=== PATIENT | female | born 1945 | race American Indian/Alaskan Native ===

== ENCOUNTER 2022-02-18 09:33 | Emergency (ER) | payer OTHER ==
[2022-02-18 09:44] VITALS: TEMP 97.8; BMI 26.9
[2022-02-18] MEDS ORDERED: SODIUM CHLORIDE 1,000 ML IV ONE (10:31)
[2022-02-18] MEDS ORDERED: FAMOTIDINE 20 MG/50 ML IVPB 20 MG in PREMIX 50 IVPB ONE (10:31)
[2022-02-18] MEDS ORDERED: MAG HYDROX/AL HYDROX/SIMETH -MYLANTA- ORAL SUSPENSION PO ONE (10:31)
[2022-02-18] MEDS ORDERED: FAMOTIDINE 20 MG/50 ML IVPB 20 MG/50 ML MG IVPB ONE (11:00)
[2022-02-18] MEDS ORDERED: MAG HYDROX/AL HYDROX/SIMETH 30 ML UNIT-DOSE CUP ONE (11:00)
[2022-02-18 11:10] LABS: HEMOGLOBIN 12.3 GM/dL (10.7-15.3); MCHC 33.2 g/dl (32.0-36.0); MEAN CELL VOLUME 90.4 fl (80-96); MEAN PLT VOLUME 8.4 fl (7.5-11.1); PLATELET COUNT 187 10^3/uL (134-434); RDW 14.7 % (11.6-15.6); WHITE BLOOD COUNT 11.4 K/mm3 (4.0-10.0)
[2022-02-18 11:12] LABS: VENOUS BASE EXCESS -5.8 mmol/L (-2-2); VENOUS O2 SATURATION 77.2 % (70-80); VENOUS PCO2 39.5 mmHg (38-52); VENOUS PH 7.319 (7.310-7.410)
[2022-02-18 11:22] LABS: EPI CELLS 2 /uL (0-25.1); HYALINE CASTS 0 /uL (0-3.1); URINE APPEARANCE CLEAR; URINE BACTERIA 1 /uL (0-1359); URINE BILIRUBIN NEGATIVE (NEGATIVE); URINE COLOR YELLOW; URINE GLUCOSE (UA) NEGATIVE (NEGATIVE); URINE KETONE NEGATIVE (NEGATIVE); URINE LEUK ESTERASE TRACE (NEGATIVE); URINE NITRITE NEGATIVE (NEGATIVE); URINE PROTEIN NEGATIVE (NEGATIVE); URINE RBC 1 /uL (0-23.9); URINE UROBILINOGEN 0.2 mg/dL (0.2-1.0); URINE WBC 7 /uL (0-25.8)
[2022-02-18 11:23] LABS: INR 1.03 (0.83-1.09); PROTHROMBIN TIME (PATIENT) 11.9 SEC (9.7-13.0)
[2022-02-18 11:27] LABS: CHLORIDE 113 mmol/L (98-107); SODIUM 141 mmol/L (136-145)
[2022-02-18 11:30] LABS: CALCIUM 8.8 mg/dL (8.5-10.1)
[2022-02-18 11:31] LABS: ALBUMIN 3.3 g/dl (3.4-5.0); ANION GAP 4 MMOL/L (8-16); BLOOD UREA NITROGEN 11.7 mg/dL (7-18); CO2 24 mmol/L (21-32); GLUCOSE,RANDOM 140 mg/dL (74-106); LIPASE 1087 U/L (73-393)
[2022-02-18 11:34] LABS: CREATININE 0.9 mg/dL (0.55-1.3); SGOT/AST 57 U/L (15-37); SGPT/ALT 43 U/L (13-61)
[2022-02-18 11:35] LABS: BILIRUBIN,TOTAL 0.6 mg/dL (0.2-1); TOT PROT 7.5 g/dl (6.4-8.2)
[2022-02-18 11:36] LABS: ALK PHOS 81 U/L (45-117)
[2022-02-18 11:44] LABS: ANISOCYTOSIS 0; MACROCYTOSIS 0
[2022-02-18] MEDS ORDERED: ONDANSETRON 4 MG/2 ML VIAL IVPUSH PRN (15:17)
[2022-02-18] MEDS ORDERED: ACETAMINOPHEN 1000 MG/100 ML BAG IVPB PRN (15:19)
[2022-02-18] MEDS ORDERED: LACTATED RINGERS SOLUTION 1,000 ML IV SCH (15:30)
[2022-02-18] MEDS ORDERED: INSULIN SLIDING SCALE (NOVOLOG) 1 VIAL SQ SCH (16:30)
[2022-02-18 18:22] VITALS: BP 178/82; PULSE 76; RESP 16
== END 2022-02-18 18:22 | disposition home or self-care (01) ==
LOC: JER 09:33 → JERBED 15:06 → UNDOADMIN 15:06
PROC: 3E033GC Introduction of Other Therapeutic Substance into Peripheral Vein, Percutaneous Approach (ICD-10-PCS; principal; 2022-02-18)
DX: K85.90 Acute pancreatitis without necrosis or infection, unspecified (principal)
CPT/HCPCS: 36415; 74177-TC; 80053; 81003; 82803; 83605; 83690; 84484; 85025; 85610; 93005; 93010; 99285-25; Q9967